=== PATIENT | male | born 2000 | race Caucasian/White ===

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

== ENCOUNTER 2019-08-17 19:22 | Inpatient (IN) | payer BC ==
[~2019-08-17] VITALS: Ht 177.8 cm; Wt 66.8 kg
[2019-08-17 19:25] VITALS: BP 115/80; BP 135/80
[2019-08-17 20:02] VITALS: BP 112/57
[2019-08-17 20:03] LABS: BASO % 0.8 % (0.0-1.0); EOS % 0.4 % (1.0-4.0); HEMATOCRIT 45.2 % (42.0-52.0); LYMPH # 0.4 10*3/uL (1.3-4.4); LYMPH % 17.1 % (27.0-41.0); MEAN CELL VOLUME 88.8 fl (80.0-94.0); MEAN CORPUSCULAR HGB 29.9 pg (27.0-31.0); MEAN CORPUSCULAR HGB CONC 33.6 g/dl (33.0-37.0); MEAN PLATELET VOLUME 10.8 fl (9.6-12.3); MONO # 0.3 10*3/uL (0.1-1.0); MONO % 13.5 % (3.0-9.0); NEUT # 1.7 10*3/uL (2.3-7.9); NEUT % 68.2 % (47.0-73.0); PLATELET COUNT AUTOMATED 159 10*3/uL (130-400); RED BLOOD COUNT 5.09 10*6/uL (4.50-5.90); WHITE BLOOD COUNT 2.5 10*3/uL (4.8-10.8)
[2019-08-17 20:19] LABS: ALBUMIN 4.2 gm/dl (3.1-4.5); ALKALINE PHOSPHATASE 78 U/L (45-117); BUN 15 mg/dl (7-24); CHLORIDE 107 mmol/L (98-107); CREATININE 1.29 mg/dL (0.70-1.30); POTASSIUM 3.2 mmol/L (3.5-5.1); SGOT/AST 20 IU/L (3-35); SGPT/ALT 19 U/L (12-78); SODIUM 139 mmol/L (136-145); TOTAL PROTEIN 7.7 gm/dL (6.4-8.2)
[2019-08-17 20:43] LABS: BILIRUBIN NEGATIVE (NEGATIVE); BLOOD NEGATIVE (NEGATIVE); CLARITY SL CLOUDY (CLEAR); COLOR YELLOW (YELLOW); GLUCOSE NEGATIVE (NEGATIVE); KETONE TRACE (NEGATIVE); PH 8.5 (5.0-9.0); SPECIFIC GRAVITY 1.015 (1.005-1.030); UROBILINOGEN 0.2 E.U./dl (0.2-1.0)
[2019-08-17 20:44] LABS: LEUKO ESTERASE NEGATIVE (NEGATIVE); NITRITE NEGATIVE (NEGATIVE)
[2019-08-17 20:50] LABS: BACTERIA 2+; MUCOUS 1+; RBC 0-2 rbc/hpf (0-2); WBC 0-2 wbc/hpf (0-5)
[2019-08-17 20:52] VITALS: BP 104/45
[2019-08-17 21:58] VITALS: BP 108/50
[2019-08-17 23:29] VITALS: BP 92/40
[2019-08-17 23:33] VITALS: BP 98/50
[2019-08-18 01:30] VITALS: BP 115/60
[2019-08-18 04:00] VITALS: BP 112/51
[2019-08-18 06:18] LABS: BASO % 0.4 % (0.0-1.0); HEMATOCRIT 41.7 % (42.0-52.0); LYMPH # 0.4 10*3/uL (1.3-4.4); LYMPH % 14.4 % (27.0-41.0); MEAN CELL VOLUME 90.8 fl (80.0-94.0); MEAN CORPUSCULAR HGB 30.5 pg (27.0-31.0); MEAN CORPUSCULAR HGB CONC 33.6 g/dl (33.0-37.0); MEAN PLATELET VOLUME 10.6 fl (9.6-12.3); MONO # 0.4 10*3/uL (0.1-1.0); MONO % 15.6 % (3.0-9.0); NEUT # 1.7 10*3/uL (2.3-7.9); NEUT % 69.2 % (47.0-73.0); PLATELET COUNT AUTOMATED 119 10*3/uL (130-400); RED BLOOD COUNT 4.59 10*6/uL (4.50-5.90); RED CELL DISTRI WIDTH 13.3 % (0-14.5); WHITE BLOOD COUNT 2.5 10*3/uL (4.8-10.8)
[2019-08-18 06:42] LABS: ALBUMIN 3.6 gm/dl (3.1-4.5); ALKALINE PHOSPHATASE 64 U/L (45-117); BUN 8 mg/dl (7-24); CHLORIDE 108 mmol/L (98-107); CHOLESTEROL 106 mg/dL (<200); FREE T4 0.86 ng/dl (0.76-1.46); HDL CHOLESTEROL 50 mg/dl (40-60); LDL CHOLESTEROL 41 mg/dL (9-159); SGOT/AST 19 IU/L (3-35); SGPT/ALT 16 U/L (12-78); SODIUM 138 mmol/L (136-145); TOTAL PROTEIN 6.7 gm/dL (6.4-8.2); TRIGLYCERIDES 77 mg/dl (<150); VLDL CHOLESTEROL 15 mg/dL (6-40)
[2019-08-18 06:47] LABS: THYROID STIM HORMONE (HS) 0.558 uIU/ml (0.358-4.75)
[2019-08-18 08:00] VITALS: BP 112/59
[2019-08-18 09:50] LABS: ACT PARTIAL THROMBO TIME 29.1 SECONDS (20.0-32.1); INTERNATIONAL NORM RATIO 1.1 (2.0-3.5)
[2019-08-18 11:01] LABS: VITAMIN D, 25-HYDROXY 38.2 ng/mL (30-100)
== END 2019-08-18 13:57 | disposition home or self-care (01) | DRG 871 ==
LOC: ED 19:22 → EDHOLD 08-18 00:32 → 4E 08-18 00:32
PROVIDERS: Emergency Medicine; Internal Medicine; ADMIT Student in an Organized Health Care Education/Training Program
DX: A41.9 Sepsis, unspecified organism (principal); N17.0 Acute kidney failure with tubular necrosis; R65.20 Severe sepsis without septic shock; B34.9 Viral infection, unspecified; E87.6 Hypokalemia; D69.6 Thrombocytopenia, unspecified; E87.8 Other disorders of electrolyte and fluid balance, not elsewhere classified; E86.0 Dehydration; I95.0 Idiopathic hypotension; Z20.828 Contact with and (suspected) exposure to other viral communicable diseases

== ENCOUNTER → 2019-08-29 | Outpatient (CLI) | payer BC | END | disposition home or self-care (01) | LOC: COVID19 02:05 | DX: Z03.818 Encounter for observation for suspected exposure to other biological agents ruled out (principal) ==

== ENCOUNTER 2025-01-02 22:05 | Emergency (ER) | payer OTHER ==
[~2025-01-02] VITALS: Ht 177.8 cm; Wt 72.6 kg
[2025-01-02 22:17] VITALS: BP 108/73
[2025-01-02] MEDS ORDERED: LORazepam 1 MG TAB PO ONE (22:50)
== END 2025-01-03 00:26 | disposition home or self-care (01) ==
LOC: ED 22:05
DX: F41.9 Anxiety disorder, unspecified (principal)